=== PATIENT | male | born 2000 | race Hispanic/Latino ===

== ENCOUNTER 2021-03-25 14:32 | Emergency (ER) | payer BC, SELFPAY ==
--- NOTE | ~2021-03-25 | CT_ITS ---
EXAMINATION: CT abdomen pelvis wo con EXAM DATE: 03/25/2021 15:32 INDICATION: Dysuria, urinary frequency. hematuria. TECHNIQUE: Spiral CT of the abdomen and pelvis was performed without contrast. Axial, coronal and sag ittal images were reviewed. The dose-length product (DLP) for this examination was 1043.80 mGy-cm. The exposure was tailored according to patient size (auto mA exposure control), and iterative reconst ruction (ASIR) was used as additional dose reduction technique. There is no prior study for comparis on. FINDINGS: There is no nephrolithiasis or hydronephrosis. The prostate is unremarkable. The bladder is unremarkable. There is hepatic steatosis without suspicious focal lesion identified. Spleen, adr enal glands, pancreas are unremarkable. Gallbladder is unremarkable. No biliary obstruction. There is no retroperitoneal or pelvic lymphadenopathy. The appendix is normal. The stomach and small bowel are unremarkable. There is expected amount of c olonic stool. No free intraperitoneal gas. The heart is normal in size. There are no pericardial or pleural effusions. The lung bases are unremarkable. There are no osteoblastic or osteolytic les ions identified. IMPRESSION: 1. No nephrolithiasis, hydronephrosis or acute intra-abdominal findings. Reviewed, dictated and finalized at location A.
[2021-03-25 14:36] VITALS: BP 142/88; PULSE 104; RESP 18; TEMP 37.1; O2SAT 100
[2021-03-25 14:55] LABS: Basophils Percent Auto 0.3 % (0.2-1.2); Eosinophils Absolute Auto 0.1 K/mm3 (0-0.3); Eosinophils Percent Auto 0.9 % (0-4.4); Hematocrit 46.6 % (42.0-52.0); Hemoglobin 16.1 g/dL (14.0-18.0); Immature Granulocyte Absolute 0.06 K/mm3 (0.00-0.031); Immature Granulocyte Percent A 0.4 % (0-0.5); Lymphocytes Absolute Auto 2.65 K/mm3 (0.9-3.2); Lymphocytes Percent Auto 17.7 % (18.3-44.2); Mean Corpuscular HGB Conc 34.5 g/dl (32-36); Mean Corpuscular Hemoglobin 29.4 pg (26-34); Mean Platelet Volume 9.6 fl (7.4-10.4); Monocytes Absolute Auto 1.4 K/mm3 (0.1-0.6); Monocytes Percent Auto 9.1 % (2.6-8.5); Neutrophils Absolute Auto 10.7 K/mm3 (1.3-6.7); Neutrophils Percent Auto 71.6 % (45.5-73.1); Platelet Count Result 205 k/mm3 (150-375); Red Blood Count 5.48 M/mm3 (4.6-6.20); Red Cell Distribution Width 12.9 % (11.5-14.5)
[2021-03-25 15:04] LABS: Alanine Aminotransferase 63 U/L (4-50); Albumin Level 4.7 g/dL (3.5-5.1); Alkaline Phosphatase 75 U/L (38-126); Anion Gap 12 mmol/L (8-16); Aspartate Amino Transferase 31 U/L (17-59); Bilirubin,Total 1.6 mg/dL (0.2-1.3); Blood Urea Nitrogen 7 mg/dL (9-20); Calcium 9.4 mg/dL (8.4-10.2); Carbon Dioxide 26 mmol/L (22-30); Chloride 105 mmol/L (98-107); Estimated CRCL calculation 137 ml/min; Estimated Glomerular Filt Rate > 60; Glucose 92 mg/dL (75-110); Potassium 3.4 mmol/L (3.4-5.0); Sodium 143 mmol/L (137-145)
[2021-03-25 15:11] LABS: Add Urine Microscopic? YES; Appearance Urine Clear (Clear); Bacteria Urine Trace /hpf; Bilirubin Urine Negative (Negative); Blood Urine 3+ (Negative); Color Urine Yellow (Yellow); Glucose Urine UA Negative (Negative); Ketones Urine Negative (Negative); Leukocyte Esterase Ur 1+ LEU/UL (Negative); Mucus Urine Rare /lpf; Nitrate Urine Negative (Negative); Protein Urine 1+ mg/dL (Negative); Specific Grav Ur 1.011 (1.001-1.035); Squamous Epithelial Cell Urine Rare /hpf (Few); WBC Urine 51-75 /hpf
--- NOTE | 2021-03-25 15:27 | PC.NURSE ---
Pt to CT.
--- NOTE | 2021-03-25 16:03 | ED.GENADULT ---
HPI - General Adult General Chief complaint: Urogenital-Male Stated complaint: flank pain Time Seen by Provider: 03/25/21 14:49 Source: RN notes reviewed History of Present Illness HPI narrative: Patient presents to emergency department from home for dysuria. Patient states symptoms began approximately 4 days ago. He states that he has pain at the end of urination and noted today some blood in his urine he states he has been having intermittent feelings of fevers and chills but no measured temperature during this time he denies any abdominal pain nausea vomiting diarrhea testicular pain or any other symptoms patient states he is sexually active but denies any known risk of sexually transmitted disease Related Data Allergies Allergy/AdvReac Type Severity Reaction Status Date / Time No Known Allergies Allergy Verified 03/25/21 14:56 Review of Systems Review of Systems: Narrative: Gen.: Denies fevers or chills ENT: Denies congestion Respiratory: Denies shortness of breath or cough CV: Denies chest pain or palpitations GI: Denies abdominal pain nausea, emesis or diarrhea see HPI Musculoskeletal: Denies back pain or muscle pain Neuro: Denies numbness, tingling, weakness or focal weakness Skin: Denies rash Except as documented, all other systems reviewed and negative PMFSH Past Medical History Medical History (Updated 03/25/21 @ 16:06 by Rusty Chino DO) Patient denies significant medical history Social History Social History (Updated 03/25/21 @ 16:05 by Rusty Chino DO) Smoking status: Never smoker Exam Narrative: Exam Narrative: APPEARANCE: No acute distress, nontoxic, resting in bed EYES: EOMI HEENT: Normocephalic, atraumatic, OMM RESPIRATORY: No respiratory distress Clear to auscultation bilaterally with no rhonchi wheezing or rales. CARDIOVASCULAR: Regular rate and rhythm without murmurs rubs or gallops. ABDOMINAL: Soft, nontender, nondistended, no rebound or guarding MUSCULOSKELETAl: Moves all extremities. No clubbing, cyanosis or edema. : Normal external exam no skin lesions seen, no scrotal swelling or erythema bilateral testicles nontender to palpation NEURO: Awake and alert. Following commands, speech normal, no focal deficits SKIN:: Warm, dry. No rashes lesions or abrasions PSYCHIATRIC: Normal affect/mood, Course Course Emergency Course: Called and discussed with CARL Fuentes for Dr. Pinto presentation work-up agrees with plan patient received Rocephin and doxycycline 100 mg twice daily for 2 weeks Discussed with patient results of workup and diagnosis. Discussed need for follow-up with primary care, proper use of medication, and reasons to return to the emergency department. Patient understands and agrees to current treatment plan discussed with patient risk of sexually transmitted diseases and all partners to be evaluated Vital Signs Vital signs: Vital Signs Temperature 98.7 F 03/25/21 14:36 Pulse Rate 104 H 03/25/21 14:36 Respiratory Rate 18 03/25/21 14:36 Blood Pressure 142/88 H 03/25/21 14:36 Pulse Oximetry 100 03/25/21 14:36 Temperature 98.7 F 03/25/21 14:36 Pulse Rate 104 H 03/25/21 14:36 Respiratory Rate 18 03/25/21 14:36 Blood Pressure 142/88 H 03/25/21 14:36 Pulse Oximetry 100 03/25/21 14:36 Medical Decision Making Vital Signs Vital Signs: Vital Signs Temperature 98.7 F 03/25/21 14:36 Pulse Rate 104 H 03/25/21 14:36 Respiratory Rate 18 03/25/21 14:36 Blood Pressure 142/88 H 03/25/21 14:36 Pulse Oximetry 100 03/25/21 14:36 Temperature 98.7 F 03/25/21 14:36 Pulse Rate 104 H 03/25/21 14:36 Respiratory Rate 18 03/25/21 14:36 Blood Pressure 142/88 H 03/25/21 14:36 Pulse Oximetry 100 03/25/21 14:36 Lab Data Result diagrams: 03/25/21 14:48 03/25/21 14:48 Labs: Lab Results 03/25/21 03/25/21 03/25/21 Range/Units 14:48 14:48 14:57 WBC 15.0 H (4.5-10.0) K/mm3 RBC
[2021-03-25] MEDS: cefTRIAXone 1 GM VIAL 0.5 GM IM (16:14)
[2021-03-25] MEDS: LIDOCAINE HCL 1% LOCAL INJ 20 ML VIAL 2.1 ML XX (16:14)
[2021-03-25] MEDS: DOXYCYCLINE HYCLATE 100 MG TABLET PO (16:18)
[2021-03-25 16:19] VITALS: BP 141/92; PULSE 98; RESP 12; TEMP 37.6; O2SAT 100
== END 2021-03-25 16:27 | disposition home or self-care (01) ==
PROVIDERS: Emergency Provider Emergency Medicine; PCP Physician Assistant
DX: N34.2 Other urethritis (principal)
CPT/HCPCS: 36415; 74176; 80053; 81001; 85025; 87077; 87086; 87088; 87186; 87491; 87591; 96372; 99284; A9270; J0696

== ENCOUNTER 2022-03-26 20:17 | Emergency (ER) | payer SELFPAY ==
[2022-03-26 20:27] VITALS: BP 154/107; PULSE 107; RESP 18; TEMP 36.4; O2SAT 100
--- NOTE | 2022-03-26 21:51 | ED.SKABFB ---
HPI - Skin/Abscess/Foreign Bdy General Chief complaint: Skin/Abscess/Foreign Body Stated complaint: hook in finger Time Seen by Provider: 03/26/22 21:25 History of Present Illness HPI narrative: 21-year-old male was fishing when he asked and caught a fishhook in his left ring finger less than an hour prior to arrival here it is quite painful, his tetanus shot is up-to-date. Has not taken any pain medication. This has never happened to him before. Related Data Allergies Allergy/AdvReac Type Severity Reaction Status Date / Time No Known Allergies Allergy Verified 03/25/21 14:56 Review of Systems Review of Systems: M/S: Left ring finger pain SKIN: Baxter in left ring finger NEURO: [No headache or focal numbness or weakness] FOR[facility]LY [facility] Past Medical History Medical History Patient denies significant medical history Social History Social History Smoking status: Never smoker Exam Narrative: EXAMINATION OF ORGAN SYSTEMS/BODY AREAS: Constitutional: Vital signs per nursing GENERAL:Nervous appearing HEAD: Normal with no signs of head trauma. EYES: EOMI, conjunctiva normal ENT: Hearing grossly intact LUNGS: Nonlabored breathing. HEART: [Regular rate and rhythm] EXT: Baxter embedded in pad of left ring finger SKIN: as above NEURO: [Alert and oriented x 3. No gross focal sensory or strength deficits.] PSYCH: Nervous affect Course Vital Signs Vital signs: Vital Signs Temperature 97.6 F 03/26/22 20:27 Pulse Rate 107 H 03/26/22 20:27 Respiratory Rate 18 03/26/22 20:27 Blood Pressure 154/107 H 03/26/22 20:27 Pulse Oximetry 100 03/26/22 20:27 Oxygen Delivery Room Air 03/26/22 20:27 Temperature 97.6 F 03/26/22 20:27 Pulse Rate 107 H 03/26/22 20:27 Respiratory Rate 18 03/26/22 20:27 Blood Pressure 154/107 H 03/26/22 20:27 Pulse Oximetry 100 03/26/22 20:27 Oxygen Delivery Room Air 03/26/22 20:27 Procedures Foreign Body Removal Foreign Body #1: Site: left and hand Description of foreign body: fish hook Sedation/Analgesia: other (digital nerve block) Technique: other (fishhook clipped where it meets skin, then barbed end pushed through the pad of finger.) Complications: none Post-procedure exam: awake, alert Neurovascular: normal capillary fill Foreign Body Removal Narrative: patient tolerated well; entire rock removed without complications after nerve block performed. Wound well-cleaned afterwards, did not appear contaminated. Nerve Block Nerve Block 1: Nerve block date: 03/26/22 Local Anesthetic: lidocaine 1% Amount of anesthesia used (mL): 3 Side: left Nerve Blocks: digital Procedure Successful: Yes Patient Tolerated Procedure: well and no complications Complications: none MDM - Skin/Abscess/Foreign Bdy MDM Narrative Medical decision making narrative: 21-year-old male presents with fishhook in his left ring finger, vital stable, exam shows embedded hook in pad of left ring finger, it is removed in the usual fashion after digital block, see procedure note, patient tolerated this well and wound was well cleaned afterwards, he is given strict return precautions for any signs of infection and asked to follow up with his doctor, stable for discharge home at this time. Discharge Plan Discharge Clinical Impression: Baxter injury to finger Patient Disposition: Home, Self-Care Condition: Stable Instructions: Antibiotic Form, Puncture Wound (ED) Additional Instructions: Please follow up with your doctor, come back if you notice any swelling to the finger, increased pain, or unusual discharge. Prescriptions: No Action doxycycline hyclate 100 mg capsule 100 mg PO BID 14 Days Qty: 28 0RF Follow-up/Referrals: Lukasz,MARGARET Brandon [Primary Care Provider] -
--- NOTE | 2022-03-26 21:52 | PC.NURSE ---
Dr. Dow at bedside to assess pt.
== END 2022-03-26 22:07 | disposition home or self-care (01) ==
PROVIDERS: Emergency Provider Emergency Medicine; PCP Physician Assistant
DX: S61.225A Laceration with foreign body of left ring finger without damage to nail, initial encounter (principal); W45.8XXA Other foreign body or object entering through skin, initial encounter
CPT/HCPCS: 99282